=== PATIENT | female | born 1980 ===

== ENCOUNTER 2018-02-23 07:35 | Emergency (ER) | payer BC ==
[2018-02-23 07:54] VITALS: BP 104/65
--- NOTE | 2018-02-23 08:05 | UC ---
Ear Complaint HPI - HPI Summary HPI Summary: C/O left ear pain x 5 days. Also has neck pain. Has been swimming a lot. - History of Current Complaint Chief Complaint: UCEar Stated Complaint: LEFT EAR Time Seen by Provider: 02/23/18 07:57 Hx Obtained From: Patient Hx Last Menstrual Period: IUD ?: No Onset/Duration: Sudden Onset, Lasting Days - 5, Worse Since - onset Severity Initially: Mild Severity Currently: Moderate Pain Intensity: 3 Associated Signs/Symptoms: Negative: Discharge, Hearing Loss - Allergies/Home Medications Allergies/Adverse Reactions: Allergies Allergy/AdvReac Type Severity Reaction Status Date / Time No Known Allergies Allergy Verified 02/23/18 07:46 Home Medications: Home Medications Biotin 1 tab PO DAILY 02/23/18 [History Confirmed 02/23/18] Ibuprofen TAB* [Motrin TAB* 400 MG] 400 mg PO ONCE PRN 02/23/18 [History Confirmed 02/23/18] Lisinopril TAB* [Prinivil TAB 5 MG*] 5 mg PO DAILY 02/23/18 [History Confirmed 02/23/18] Multivitamin [Multivitamins] 1 tab PO DAILY 02/23/18 [History Confirmed 02/23/18 ] PMH/Surg Hx/FS Hx/Imm Hx Cardiovascular History: Hypertension - Surgical History Surgical History: Yes Surgery Procedure, Year, and Place: x 2. T&A - Family History Known Family History: Positive: Hypertension - Social History Occupation: Employed Full-time Lives: With Family Alcohol Use: Occasionally Alcohol Amount: 1 drink monthly Substance Use Type: None Smoking Status (MU): Never Smoked Tobacco Have You Smoked in the Last Year: No Review of Systems ENT: Ear Ache Musculoskeletal: Arthralgia - neck pain Is Patient Immunocompromised?: No All Other Systems Reviewed And Are Negative: Yes Physical Exam Triage Information Reviewed: Yes Appearance: Well-Appearing, Well-Nourished, Pain Distress - only with exam Vital Signs: Initial Vital Signs Temp 98.2 F 02/23/18 07:47 Pulse 76 02/23/18 07:47 Resp 18 02/23/18 07:47 BP 104/65 02/23/18 07:47 Pulse Ox 100 02/23/18 07:47 Vital Signs Reviewed: Yes Eyes: Positive: Conjunctiva Clear ENT Exam: Normal Neck: Positive: Tenderness @ - bilateral scalene muscle tenderness with trigger points. Respiratory Exam: Normal Cardiovascular Exam: Normal Musculoskeletal Exam: Normal Neurological Exam: Normal Psychological Exam: Normal Skin Exam: Normal Ear Complaint Course/Dx - Course Course Of Treatment: Advised patient re: trigger point release and PT. - Differential Dx/Diagnosis Differential Diagnosis/HQI/PQRI: Cerumen Impaction, Mastoiditis, Otitis Externa Provider Diagnoses: Cervicalgia, neck pain Discharge - Sign-Out/Discharge Documenting (check all that apply): Patient Departure - Discharge Plan Condition: Stable Disposition: HOME Prescriptions: Cyclobenzaprine TAB* [Flexeril 10 MG TAB*] 10 mg PO BEDTIME PRN #30 tab PRN Reason: Neck pain Patient Education Materials: Acute Neck Pain (ED), Cyclobenzaprine (By mouth) Referrals: Sugar Liz MD [Primary Care Provider] - - Billing Disposition and Condition Condition: STABLE Disposition: Home
== END 2018-02-23 08:27 | disposition home or self-care (01) ==
LOC: UCCORT 07:35
DX: H92.02 Otalgia, left ear (principal); M54.2 Cervicalgia
CPT/HCPCS: 99202; G0463

== ENCOUNTER 2018-07-21 09:43 | Emergency (ER) | payer BC ==
[2018-07-21 09:57] VITALS: BP 126/88
--- NOTE | 2018-07-21 10:49 | UC ---
Respiratory Complaint HPI - HPI Summary HPI Summary: The patient is a 37-year-old female with a 3 week history of congestion and facial pressure and cough. She has had no fever. 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 She denies any sore throat. She denies any chest pain or shortness of breath. - History of Current Complaint Chief Complaint: UCRespiratory Stated Complaint: COUGH, CONGESTION Time Seen by Provider: 07/21/18 10:18 Hx Obtained From: Patient Hx Last Menstrual Period: Mirana Onset/Duration: Gradual Onset, Lasting Weeks - 3 Timing: Constant Severity Initially: Mild Severity Currently: Moderate Pain Intensity: 0 Pain Scale Used: 0-10 Numeric Character: Cough: Nonproductive Aggravating Factors: Nothing Associated Signs And Symptoms: Positive: Nasal Congestion, Sinus Discomfort - Allergies/Home Medications Allergies/Adverse Reactions: Allergies Allergy/AdvReac Type Severity Reaction Status Date / Time No Known Allergies Allergy Verified 07/21/18 09:57 PMH/Surg Hx/FS Hx/Imm Hx Previously Healthy: Yes - Surgical History Surgical History: Yes Surgery Procedure, Year, and Place: x 2. T&A - Family History Known Family History: Positive: Hypertension - Social History Alcohol Use: Occasionally Alcohol Amount: 1 drink monthly Substance Use Type: None Smoking Status (MU): Never Smoked Tobacco Have You Smoked in the Last Year: No Review of Systems All Other Systems Reviewed And Are Negative: Yes Constitutional: Positive: Negative Skin: Positive: Negative Eyes: Positive: Negative ENT: Positive: Nasal Discharge, Sinus Congestion, Sinus Pain/Tenderness Respiratory: Positive: Cough Cardiovascular: Positive: Negative Gastrointestinal: Positive: Negative Genitourinary: Positive: Negative Motor: Positive: Negative Neurovascular: Positive: Negative Musculoskeletal: Positive: Negative Neurological: Positive: Negative Psychological: Positive: Negative Physical Exam Triage Information Reviewed: Yes Appearance: Well-Appearing, No Pain Distress, Well-Nourished Vital Signs: Initial Vital Signs Temp 98.1 F 07/21/18 09:55 Pulse 96 07/21/18 09:55 Resp 16 07/21/18 09:55 BP 126/88 07/21/18 09:55 Pulse Ox 100 07/21/18 09:55 Vital Signs Reviewed: Yes Eyes: Positive: Conjunctiva Clear ENT: Positive: Hearing grossly normal, Nasal congestion, Nasal drainage, TMs normal, Sinus tenderness. Negative: Tonsillar swelling, Tonsillar exudate, Dental tenderness Neck: Positive: Supple, Nontender, No Lymphadenopathy Respiratory: Positive: Lungs clear, Normal breath sounds, No respiratory distress, No accessory muscle use Cardiovascular: Positive: RRR, No Murmur Neurological: Positive: Alert Psychological Exam: Normal Skin Exam: Normal UC Diagnostic Evaluation - Laboratory O2 Sat by Pulse Oximetry: 100 - normal/not hypoxic Respiratory Course/Dx - Differential Dx/Diagnosis Provider Diagnosis: Acute sinusitis Discharge - Sign-Out/Discharge Documenting (check all that apply): Patient Departure All imaging exams completed and their final reports reviewed: No Studies - Discharge Plan Condition: Stable Disposition: HOME Prescriptions: Amoxicillin PO (*) [Amoxicillin 875 MG (*)] 875 mg PO BID #20 tab Fluticasone NASAL SPRAY 50MCG* [Flonase NASAL SPRAY 50MCG*] 2 spray BOTH NARES BID #1 btl Patient Education Materials: Sinusitis (ED) Referrals: Sugar Liz MD [Primary Care Provider] - 1 Week (recheck in 1-2 weeks if not better) Additional Instructions: warm facial compresses - Billing Disposition and Condition Condition: STABLE Disposition: Home
== END 2018-07-21 10:57 | disposition home or self-care (01) ==
LOC: UCCORT 09:43
DX: J01.90 Acute sinusitis, unspecified (principal)
CPT/HCPCS: 99212; G0463